=== PATIENT | female | born 1980 | race African-American/Black ===

== ENCOUNTER 2021-05-05 13:40 | Emergency (ER) | payer OTHER ==
[~2021-05-05] VITALS: Ht 152.4 cm; Wt 79.4 kg
--- NOTE | ~2021-05-05 | EMS ---
[address] [place] [address] EMS Patient Care Report Name: SILVIA LOWRY Room: [facility]#: [id number] Admission: Attend Phys: Discharge: Date of : 80 Report #: [id number] THIS REPORT FOR: //name// Report Transmitted: 05/05/2021 14:28 EMS Care Summary [facility] [place] Incident [id number] @ 05/05/2021 13:06 Incident Location [address] [place], [place] [id number] Patient Silvia Lowry Female, 41 Years 1980 Patient Address [address] [place] [id number] Patient History Dysthymic disorder, Patient Allergies , Patient Medications Hydrocodone, Xanax, Chief Complaint Suicidal Ideation Disposition Transported No Lights/Carmen Dispatch Reason Overdose/Poisoning/Ingestion Transported To [facility] Narrative [address] responded for a staged call on a possible Overdose. 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 The patient stated she took 10 prescription pain pills and drank alcohol today. She stated that was am attempt [address] [place] [address] EMS Patient Care Report Name: SILVIA LOWRY Room: [facility]#: [id number] Admission: Attend Phys: Discharge: Date of : 80 Report #: [id number] to kill herself. vitals were taken. Transport decision to [facility] was made. The patient was assisted to stand and walk to the ambulance. She asked if she could have a cigarette before she went. The crew agreed to let her have half of a cigarette to calm down. She was able to climb into the back of the ambulance and sit on the cot. Once in the ambulance, she became emotional and stated she did not want to go to the hospital. She was explained that the need to be evaluated was there and she agreed. She was assisted to lay back on the cot and was secured with the safety straps. Transport was started. she was placed on the monitoring engineer. An IV was attempted without success. She was transported without incident. She reported that she had left a note for her kids at home. Patient asked if her kids could be sent a text message to know that she was safe. A text message was sent to her kids on her cell phone. She became sleepy during transport. She was easily awaken by voice. Vitals and patient condition were monitored throughout for any changes. Upon arrival to the hospital, she was moved inside on the cot. She was moved to room 18 in the ER. She was moved from the cot to the bed by slide sheet. patient information and report was given to the nurse. signature obtained from the nurse. the nurse signed on behalf of the patient due to her being under the influence of drugs and alcohol. patient care was transferred. returned to service. Initial Vitals @13:10P: 84,R: 16,BP: 162/P, @13:35P: 80,R: 19,BP: 136/P, @13:10GCS: 15, @13:35GCS: 15, Assessments @13:10MENTAL:SKIN:HEENT:LUNG SOUNDS:ABDOMEN:PELVIS//GI:EXTREMITIES:PULSE:NEURO: Impression Mental disorder Timeline 12:55,Dispatch Notified 12:55,Psap Call 13:00,Call Received 13:06,Dispatched 13:06,En Route 13:09,On Scene 13:10,At Patient 13:10,BP: 162/P M,PULSE: 84,RR: 16 R,SPO2: Ox,ETCO2: ,BG: ,PAIN: ,GCS: , 13:10,BP: / M,PULSE: ,RR: R,SPO2: Ox,ETCO2: ,BG: ,PAIN: ,GCS: 15, 13:21,Depart Scene 13:35,BP: 136/P M,PULSE: 80,RR: 19 R,SPO2: Ox,ETCO2: ,BG: ,PAIN: ,GCS: , [place] [address] EMS Patient Care Report Name: LOWRYSILVIA Room: PRE M.R.#: [id number] Admission: Attend Phys: Discharge: Date of : 80 Report #: [id number] 13:35,BP: / M,PULSE: ,RR: R,SPO2: Ox,ETCO2: ,BG: ,PAIN: ,GCS: 15, 13:36,At Destination 13:43,Call Closed Disclaimer v1.1 Copyright 2020 [employer] This EMS Care Summary contains data elements from the applicable legal record (which may be displayed differently). It is designed to provide pertinent information for the following purposes: continuity of care, clinical quality, and state data reporting. The complete legal record is available to ED staff and administrators of the receiving hospital in [employer]'s Patient Tracker. All data is provided "as is."
[~2021-05-05 13:40] MED LIST: MIRENA
[2021-05-05] MEDS ORDERED: CYMBALTA30 MG PO (13:52)
[2021-05-05] MEDS ORDERED: COZAAR 25 MG TA25 M1 PO (13:52)
[2021-05-05] MEDS ORDERED: XANAX1 MG PO (13:52)
[2021-05-05 14:02] LABS: ABSOLUTE EOSINOPHILS 0.1 thou/uL (0.0-0.7); ABSOLUTE MONOCYTES 0.4 thou/uL (0.0-1.2); ABSOLUTE NEUTROPHILS 2.4 thou/uL (1.6-8.1); HEMATOCRIT 38.8 % (37.0-47.0); HEMOGLOBIN 13.2 gm/dL (12.0-15.0); LYMPHOCYTES 41.4 %; MCHC 34.1 g/dL (28.0-37.0); MCV 93.8 fL (80.0-100.0); MONOCYTES 7.6 %; MPV 7.8 fl. (7.2-11.1); NUCLEATED RBCS 0 /100WBC; PLATELET COUNT* 254 thou/uL (150-400); RBC 4.13 mil/uL (4.20-5.00); RDW-CV 13.7 % (10.5-14.5); WBC 4.9 thou/uL (4.0-11.0)
[2021-05-05 14:13] LABS: CALCIUM 8.7 mg/dL (8.5-10.1); CREATININE 0.8 mg/dL (0.6-1.3); POTASSIUM 3.1 mmol/L (3.5-5.1)
[2021-05-05 14:23] LABS: ACETAMINOPHEN 4 ug/mL (10-30); ALCOHOL 74 mg/dL (<10); SALICYLATE < 2.8 mg/dL (2.8-20.0)
[2021-05-05 14:24] LABS: ALBUMIN 3.8 g/dL (3.4-5.0); TOTAL BILIRUBIN 1.4 mg/dL (<0.1-1.0); TOTAL PROTEIN 8.1 g/dL (6.4-8.2)
[2021-05-05 15:38] LABS: URINE BILIRUBIN NEGATIVE (Negative); URINE BLOOD NEGATIVE (Negative); URINE CLARITY CLEAR; URINE COLOR YELLOW; URINE GLUCOSE-RANDOM NEGATIVE (Negative); URINE KETONES NEGATIVE (Negative); URINE LEUKOCYTES-REFLEX NEGATIVE (Negative); URINE NITRITE-REFLEX NEGATIVE (Negative); URINE PROTEIN NEGATIVE (Negative); URINE UROBILINOGEN 0.2 E.U./dl (0.2-1.0)
[2021-05-05 15:40] LABS: AMP/METHAMP Negative (Negative); BARBITURATES Negative (Negative); BENZODIAZEPINES POSITIVE (Negative); COCAINE Negative (Negative); METHADONE Negative (Negative); OPIATES POSITIVE (Negative); PCP Negative (Negative); THC Negative (Negative)
[2021-05-06 09:50] VITALS: BP 122/77
--- NOTE | 2021-05-06 13:48 | EKG ---
[place] [address] ELECTROCARDIOGRAM REPORT Name: JOSE F GUADALUPENEY Yamilka Room: [facility]#: [id number] Admission: 05/05/21 Attend Phys: Discharge: 05/06/21 Date of : 80 Date of Service: 05/05/21 1401 Report #: [id number] THIS REPORT FOR: //name// [facility] ED Test Date: 2021-05-05 Test Time: 14:01:18 Pat Name: YURIY GUADALUPE Department: Room: Gender: Time Study Technician: YONATHAN : 1980 Requested By: Yahir Matthews Order Number: [id number] MD: Chris Giordano Measurements Intervals [place] Rate: 102 P: 36 SC: 148 QRS: 43 QRSD: 78 T: -62 QT: 352 QTc: 459 Interpretive Statements Sinus tachycardia Inferior infarct, age indeterminate Lateral leads are also involved No previous ECG available for comparison Electronically Signed On 05-06-2021 13:47:30 CDT by Chris Giordano [email or web address] <ELECTRONICALLY SIGNED> By: Chris Giordano MD, [facility] 05/06/21 1347 1401 1401 Chris Giordano MD, [facility] /EPI
== END 2021-05-06 09:50 ==
LOC: M.ERS 13:40
PROVIDERS: Family Medicine
DX: T42.4X2A Poisoning by benzodiazepines, intentional self-harm, initial encounter (principal); Z20.822 Contact with and (suspected) exposure to COVID-19; R45.851 Suicidal ideations; Z79.899 Other long term (current) drug therapy; Z88.2 Allergy status to sulfonamides; Y92.89 Other specified places as the place of occurrence of the external cause